=== PATIENT | male | born 1990 | race Caucasian/White ===

== ENCOUNTER → 2017-06-08 | Day surgery (SDC) | payer OTHER ==
[~2017-06-08] VITALS: Ht 188 cm; Wt 88.5 kg
[~2017-06-08] MED LIST: ACETAMINOPHEN/HYDROcodone 325 MG/7.5 MG TAB PO PRN; CHLORHEXIDINE GLUCONATE 2 % 1 PACK (2 CLOTHS) TOPICAL PRN; CHLORHEXIDINE GLUCONATE 4% SOLN 120 ML BTL TOPICAL SCH; DO NOT ADM ANY ANTICOAGULANT DRUGS PRN; FAMOTIDINE 20 MG/2 ML VIAL ONE; GENTAMICIN SULFATE 80 MG/2 ML VIAL IRRIGATION ONE; GENTAMICIN SULFATE 80 MG/2 ML VIAL ONE; HYDR-3288 PO; INSULIN HUMAN REGULAR 1,000 UNITS/10 ML VIAL SQ PRN; LACTATED RINGER'S 1000 ML INJ 1,000 ML IV ONE; LACTATED RINGER'S 1000 ML IV PRN; METOPROLOL TARTRATE 25 MG TAB PO PRN; MIDAZOLAM HCL 2 MG/2 ML VIAL ONE; MORPHINE SULFATE 4 MG/ML INJ IV PUSH PRN; ONDANSETRON HCL 4 MG/2 ML VIAL IV PRN; ONDANSETRON HCL 4 MG/2 ML VIAL IV PUSH ONE; POVIDONE IODINE 5% (ANTISEPSIS KIT) 4 APPLICATIONS EACH NARE PRN; POVIDONE IODINE 7.5% SCRUB 118 ML BOTTLE TOPICAL SCH; PROPOFOL 200 MG/20 ML AMP IV ONE; SODIUM CHLORID 0.9% 500 ML IV PRN; SODIUM CHLORIDE 0.9% FLUSH 10 ML FLUSH IV FLUSH PRN; SODIUM CHLORIDE 0.9% FLUSH 10 ML FLUSH IV FLUSH SCH; Z.0.NO CURRENT MEDS; ceFAZolin 2 GM PREMIX 50 ML IV SCH; ceFAZolin 2 GM PREMIX 50 ML ONE; ePHEDrine/NS 25 MG/5 ML SYR IV ONE; fentaNYL CITRATE 250 MCG/5 ML AMP ONE
[2017-06-08 08:21] VITALS: BP 120/76; PULSE 66; RESP 16; TEMP 98.1; O2SAT 98
--- NOTE | 2017-06-08 11:57 | PD.OP ---
cc: Julio Farah MD Operative Report Date of Surgery: Jun 08, 2017 Preoperative Diagnosis: Right elbow distal biceps tendon rupture with retraction Postoperative Diagnosis: Same Procedure: Right elbow distal biceps tendon repair. Anesthesia: Regional and general Surgeon: Julio Farah Patient Financial Advocate(s): PETER Kothari The surgical procedure was assisted by my Advanced Registered Nurse Practitioner. My DIRECTOR TARGETED MARKETING presence was necessary throughout this case for the manipulation and positioning of the surgical extremity. My DIRECTOR TARGETED MARKETING was assisting me throughout the duration of this procedure. The skill set of an Advance Registered Nurse Practitioner was medically necessary to complete this procedure. During the surgical case, the surgical coordinator was working at the back table and the Advance Registered Nurse Practitioner was directly assisting me. Operation and Findings: The patient received intravenous Ancef. He was brought back to the operative theater after regional anesthesia had been administered. Gen. anesthesia was administered. He was placed in a supine position. The right upper extremity was prepped and draped in the usual sterile fashion. We made transverse incision through the antecubital fossa. We ligated several anterior veins. We bluntly dissected and found serous fluid from the tract of the biceps tendon. We found the biceps tendon completely torn and retracted proximally. We identified the stump and pulled this out to the appropriate tension. The tendon was somewhat thin. We then used a Arthrex fiber loop to place a baseball stitch throughout the entire biceps tendon. We created a nice distal end to the tendon for acceptance into the radial tuberosity. We bluntly dissected down distally through the tract. We ligated a branch of the recurrent radial artery with 2-0 silk. We exposed the radial tuberosity with baby [place]'s. We did this subperiosteal to make sure not to injure the posterior interosseous nerve. We drilled in the central portion of the tuberosity with the guidewire and then used a 7.5 reaming bit in the anterior cortex. We placed the biceps button onto the FiberWire on the tendon stump. We delivered the button through both holes in the radius. We flipped the button and then tightened the suture and walk to the tendon into the hole we created. We used an arthroscopic knot tire to tie the suture and hold the tendon in place. We further secured this using an Arthrex bio tenodesis screw, 7 mm in diameter with excellent purchase. The tendon had excellent tension on it and we were able to achieve full extension of the elbow. The wound was thoroughly irrigated. Hemostasis was achieved throughout the case with only minimal blood loss. We were careful to protect the lateral antecubital cutaneous nerve. We closed skin with 2-0 Vicryl followed by 3-0 nylon. The patient's arm was dressed and placed in a posterior splint. Postoperative plan is to follow a standard distal biceps tendon repair protocol. Julio Farah MD Jun 08, 2017 11:57
[2017-06-08 13:34] VITALS: BP 121/71; PULSE 60; RESP 20; TEMP 97.8; O2SAT 100
== END | disposition home or self-care (01) ==
LOC: HSDC 07:39
PROVIDERS: ATTEND Orthopaedic Surgery
DX: S46.211A Strain of muscle, fascia and tendon of other parts of biceps, right arm, initial encounter (principal); X58.XXXA Exposure to other specified factors, initial encounter
CPT/HCPCS: 01710; 24341; J0690; J1580; J2250; J2405; J3010; J7120